=== PATIENT | female | born 1995 | race Asian ===

== ENCOUNTER → 2016-05-31 07:32 | Day surgery (SDC) | payer OTHER ==
[~2016-05-31 07:32] MED LIST: Buffered Lidocaine 1% SYR 3ML* 3 ML/SYR SYRINGE INTRADERM ONE; Buffered Lidocaine 1% SYR 3ML* 3 ML/SYR SYRINGE ONE; Bupivacaine 0.25% SDV* 30 ML ONE; Cisatracurium* 2 MG/ML MDV 10 ML ONE; Dexamethasone IV* 4 MG/ML 1 ML (4 MG) ONE; Famotidine IV* 10 MG/ML 2 ML (20 mg) IV ONE; Famotidine IV* 10 MG/ML 2 ML (20 mg) ONE; Glycopyrrolate IV* 0.2 MG/ML 1 ML VIAL ONE; HYDROmorphone INJ* 1 MG/ML CARPUJECT SYRINGE IV PRN; HYDROmorphone INJ* 1 MG/ML CARPUJECT SYRINGE ONE; KETAMINE HCL* 50 MG/ML 10 ML VIAL ONE; Ketorolac INJ* 30 MG/ML 1 ML VIAL ONE; Lidocaine 2% MPF* 2 ML VIAL ONE; Metoclopramide TAB* 10 MG ONE; Metoclopramide TAB* 10 MG PO ONE; Midazolam* 1 MG/ML 5 ML VIAL (5 MG) ONE; Neostigmine Methylsulfate* 2 MG/2 ML SYRINGE ONE; Ondansetron INJ* 2 MG/ML VIAL IV PRN; Ondansetron INJ* 2 MG/ML VIAL ONE; Propofol* 10 MG/ML 20 ML BTL IV PUSH ONE; fentaNYL* 50 MCG/ML 2 ML VIAL (100 MCG VIAL) ONE; oxyCODONE/Acetamin 5/325 MG* TAB ONE; oxyCODONE/Acetamin 5/325 MG* TAB PO PRN
[2016-05-31 08:09] LABS: UR Preg Internal Control QC Line Present
[2016-05-31] MEDS: fentaNYL* 50 MCG/ML 2 ML VIAL (100 MCG VIAL) IV PRN ×2 (11:11→11:46)
[2016-05-31 13:28] VITALS: BP 121/69
--- NOTE | 2016-05-31 20:09 | OP ---
OPERATIVE REPORT: DATE OF OPERATION: 05/31/16 DATE OF : [birth year] SURGEON: Albina Cameron MD ANESTHESIOLOGIST: Dr. Cuadra. ANESTHESIA: General endotracheal. PRE-OP DIAGNOSIS: Satisfied parity. POST-OP DIAGNOSIS: Satisfied parity. OPERATIVE PROCEDURE: Laparoscopic bilateral tubal ligation and excision of keloid scar. INDICATIONS: This patient is a 21-year-old 3, para 3. The patient presented to the clinic strongly desiring permanent sterilization. She expressed this during her most recent which was unplanned as well. She was extensively counseled and consent was signed for a laparoscopic bilateral tubal ligation with possible excision of keloid scar. ESTIMATED BLOOD LOSS: Minimal. URINE OUTPUT: 50 cc. IV FLUIDS: 1900 cc lactated Ringer's. MATERIALS TO LAB: None. FINDINGS: Normal-appearing uterus, fallopian tubes, and ovaries with no abnormalities. There was some small amount of blood-tinged fluid in the posterior cul-de-sac consistent with ongoing menses. The patient had keloid scars at all three of her prior appendectomy laparoscopy sites. So, the suprapubic keloid was excised prior to placing a port since it was in the same location that I needed. COMPLICATIONS: None. DESCRIPTION OF PROCEDURE: The risks, benefits, and alternatives were described to the patient, and informed consent was obtained. The patient was taken to the operating room with IV running where general anesthesia was induced and found to be adequate. The patient was prepped and draped in normal-sterile fashion in the low lithotomy position and Guillermo stirrups. A time-out was performed. The bladder was emptied. A bivalve speculum was placed in the vagina and a Hulka tenaculum was placed through the cervix into the uterus. The speculum was then removed. Attention was then turned to the abdomen. 0.25% Marcaine was then injected into the skin surrounding the suprapubic keloid which was about 2cm in length. A 15 blade scalpel was used to excise the scar completely. 0.25% Marcaine was then injected into the umbilicus as well. A 5 mm skin incision was made with a scalpel in the umbilicus. A 5mm bladeless trocar was then inserted through the incision and into the peritoneal cavity without difficulty. The skin was elevated using penetrating towel clamps. Once the trocar was in the abdominal cavity, the abdomen was insufflated with carbon dioxide gas to a maximum pressure of 15 mmHg. Using the camera, the area below the trocar placement was carefully inspected and there was no evidence of trauma or bleeding. The patient was placed in Trendelenburg position. An 8-mm blunt trocar was also placed through suprapubic incision and into the abdominal cavity without difficulty. Using the Hulka tenaculum for manipulation, the uterus was elevated and well visualized. The structures appeared normal. Filshie clips were prepared. A Filshie clip was then placed on the patient's right fallopian tube in the mid isthmic portion without difficulty. The same was then performed on the patient's left side, again without difficulty and with excellent hemostasis. The case was then completed. The trocars were removed from the abdomen and the gas was allowed to escape. The suprapubic skin was reapproximated using 4-0 Monocryl in a subcuticular stitch, and the incisions were then overlaid with Dermabond skin adhesive. The tenaculum was then removed from the cervix as well, and there was only light bleeding from the vagina at that time. The patient was returned to the supine position and allowed to awaken. The patient tolerated the procedure well. Sponge, lap, and needle counts were correct x2. [id number]/[facility] #: [id number] [facility]
== END | disposition home or self-care (01) ==
LOC: OR 07:32
PROVIDERS: ATTEND Obstetrics & Gynecology
DX: Z30.2 Encounter for sterilization (principal); L91.0 Hypertrophic scar
CPT/HCPCS: 81025; A9270-GY; C1776; J1100; J1170; J1885; J2250; J2405; J2704; J3010

== ENCOUNTER 2019-02-03 19:00 | Emergency (ER) | payer OTHER ==
[2019-02-03 19:21] VITALS: BP 101/66
--- NOTE | 2019-02-03 19:26 | UC ---
Respiratory Complaint HPI - HPI Summary HPI Summary: 23 yo female ill x 5 days fever and chills x 3 days MARK muscle aches no n/v/d no hx asthma /bronchitis or pneumonia - History of Current Complaint Chief Complaint: UCGeneralIllness Stated Complaint: COLD SYMPTOMS Time Seen by Provider: 02/03/19 19:23 Hx Obtained From: Patient Hx Last Menstrual Period: 02/02/19 Onset/Duration: Gradual Onset, Lasting Days Timing: Constant Severity Initially: Moderate Severity Currently: Moderate Pain Intensity: 6 Pain Scale Used: 0-10 Numeric Character: Cough: Nonproductive Aggravating Factors: Nothing Alleviating Factors: Nothing Associated Signs And Symptoms: Positive: Fever, Chills, Nasal Congestion, Sinus Discomfort. Negative: Dizziness, Calf Pain, Calf Swelling, Edema, Hoarseness - Allergies/Home Medications Allergies/Adverse Reactions: Allergies Allergy/AdvReac Type Severity Reaction Status Date / Time No Known Allergies Allergy Verified 02/03/19 19:15 Home Medications: Home Medications D-Methorphan/PE/Acetaminophen [Day Time Cold-Flu Liquid] 237 ml PO ONCE [History Confirmed 02/03/19] Diphenhyd/Phenyleph/Acetaminop [Robitussin Cold-Flu Night Liq] 237 ml PO ONCE [History Confirmed 02/03/19] PMH/Surg Hx/FS Hx/Imm Hx Previously Healthy: Yes - Surgical History Surgical History: Yes Surgery Procedure, Year, and Place: APPENDectomy. TUBAL LIGATION - Family History Known Family History: Positive: Non-Contributory - Social History Alcohol Use: Occasionally Substance Use Type: None Smoking Status (MU): Never Smoked Tobacco Type: Cigarettes Amount Used/How Often: 3 CIGARETTES X 7 YEARS Have You Smoked in the Last Year: No When Did the Patient Quit Smoking/Using Tobacco: Stopped with this when found out Household Exposure Type: Cigarettes - Immunization History Most Recent Influenza Vaccination: reports did not receive this season Most Recent Tetanus Shot: Pt unsure Most Recent Pneumonia Vaccination: unsure Review of Systems All Other Systems Reviewed And Are Negative: Yes Constitutional: Positive: Fever, Chills, Fatigue Skin: Positive: Negative Eyes: Positive: Negative ENT: Positive: Nasal Discharge, Sinus Congestion Respiratory: Positive: Cough Cardiovascular: Positive: Negative Gastrointestinal: Positive: Negative Genitourinary: Positive: Negative Motor: Positive: Negative Neurovascular: Positive: Negative Musculoskeletal: Positive: Myalgia Neurological: Positive: Headache Psychological: Positive: Negative Physical Exam Triage Information Reviewed: Yes Appearance: Well-Appearing, No Pain Distress, Well-Nourished Vital Signs: Initial Vital Signs Temp 99.4 F 02/03/19 19:17 Pulse 63 02/03/19 19:17 Resp 18 02/03/19 19:17 BP 101/66 02/03/19 19:17 Pulse Ox 100 02/03/19 19:17 Vital Signs Reviewed: Yes Eyes: Positive: Conjunctiva Clear ENT: Positive: Hearing grossly normal, Nasal congestion, TMs normal, Sinus tenderness - slight bilat max sinus tendernss, Uvula midline. Negative: Nasal drainage, Tonsillar swelling, Tonsillar exudate, Trismus, Muffled voice, Hoarse voice Neck: Positive: Supple, Nontender, No Lymphadenopathy Respiratory: Positive: Lungs clear, Normal breath sounds, No respiratory distress, No accessory muscle use Cardiovascular: Positive: RRR, No Murmur Abdomen Description: Positive: Nontender, No Organomegaly. Negative: CVA Tenderness (R), CVA Tenderness (L) Musculoskeletal: Positive: ROM Intact, No Edema Neurological: Positive: Alert Psychological Exam: Normal Skin Exam: Normal Diagnostics - Laboratory Lab Results: influenza (-) - Radiology No standard instances Radiology Interpretation Completed By: ED Physician Summary of Radiographic Findings: NAD Respiratory Course/Dx - Differential Dx/Diagnosis Provider Diagnosis: Viral URI with cough Discharge ED - Sign-Out/Discharge Documenting (check all that apply): Patient Departure All imaging exams completed and their final reports reviewed: No Studies - Discharge Plan Condition: Stable Disposition: HOME Prescriptions: Benzonatate CAP* [Tessalon CAP*] 100 - 200 mg PO TID PRN #28 cap PRN Reason: Cough Fluticasone NASAL SPRAY 50MCG* [Flonase NASAL SPRAY 50MCG*] 2 spray BOTH NARES BID #1 btl Patient Education Materials: Upper Respiratory Infection (ED) Referrals: Ebony Kincaid MD [Primary Care Provider] - 7 Days (if not completely better) Additional Instructions: the offical XR reading will be available in AM I saw no pneumonia rest fluids tylenol recheck for worsening symptoms or if still running a fever in 4 days - Billing Disposition and Condition Condition: STABLE Disposition: Home
[2019-02-03 20:00] LABS: Influenza A Molecular NEGATIVE (Negative); Influenza B Molecular NEGATIVE (Negative)
[2019-02-03] MEDS ORDERED: Benzonatate CAP* 100 MG PO ONE (20:08)
--- NOTE | 2019-02-04 20:36 | UC ---
- Progress Note Progress Note: Patient Name: BAY BUSTOS Medical Record#: [id number] Ordering Physician: Cristo Daily MD Acct.#: [id number] : 1995 Age: 23 Sex: F Location: [facility] Exam Date: 02/03/191938 ADM Status: DEP ER Order Information: CHEST PA & LAT 2 VWS Accession Number: [id number] CPT: 30840 INDICATION: Cough and fever. COMPARISON: There are no relevant prior studies available for comparison. TECHNIQUE: Dual-energy PA and lateral views of the chest were obtained. FINDINGS: The heart is within normal limits in size. Mediastinal and hilar contours appear within normal limits. The lungs are clear. No pleural effusion is seen. IMPRESSION: NO EVIDENCE FOR ACTIVE CARDIOPULMONARY DISEASE. R0 Preliminary Imaging Read R0 <Electronically signed by Eugene Reed MD in OV> 02/04/19709 Dictated By: Eugnee Reed MD Dictated Date/Time: 02/04/19708 Transcribed Date/Time: 02/04/19708 Copy to: CC:Ebony Kincaid MD; Cristo Daily MD Imaging - [facility] - [facility] [address] [place] [address] ph ([phone]) ph ([phone]) ph ([phone]) This report is only to be considered final once signed by the Provider(s) as displayed in the "<Electronically Signed by >" field (s). Absence of a signature indicates the report is in a draft status and still needs to be finalized. In the event this document was created by someone other than the signing Provider, the individual initiating the document will be listed in the "Entered by:" or "Dictated by:" ly. 1 of 1 Course/Dx - Diagnoses Provider Diagnoses: Viral URI with cough Discharge ED - Sign-Out/Discharge Documenting (check all that apply): Post-Discharge Follow Up All imaging exams completed and their final reports reviewed: Yes - Discharge Plan Condition: Stable Disposition: HOME Prescriptions: Benzonatate CAP* [Tessalon CAP*] 100 - 200 mg PO TID PRN #28 cap PRN Reason: Cough Fluticasone NASAL SPRAY 50MCG* [Flonase NASAL SPRAY 50MCG*] 2 spray BOTH NARES BID #1 btl Patient Education Materials: Upper Respiratory Infection (ED) Referrals: Ebony Kincaid MD [Primary Care Provider] - 7 Days (if not completely better) Additional Instructions: the offical XR reading will be available in AM I saw no pneumonia rest fluids tylenol recheck for worsening symptoms or if still running a fever in 4 days - Billing Disposition and Condition Condition: STABLE Disposition: Home
== END 2019-02-03 20:25 | disposition home or self-care (01) ==
LOC: UCEAST 19:00
DX: J06.9 Acute upper respiratory infection, unspecified (principal); Z87.891 Personal history of nicotine dependence
CPT/HCPCS: 71046; 99212; A9270-GY; G0463